=== PATIENT | female | born 1950 | race Caucasian/White ===

== ENCOUNTER 2017-11-11 09:11 | Emergency (ER) | payer MEDICARE ==
[~2017-11-11] VITALS: Ht 170.2 cm; Wt 63.5 kg
[~2017-11-11 09:11] MED LIST: ALBU90OI61 INH; ALPR.25 PO; ALPR.5 PO; ASPI81CH PO; BUSP5 PO; CALCAVITD PO; FISH1000 PO; FLUT110OIA INH; HYDR1TAB94 PO; MONT10T PO; RANI150; RANI150 PO; SERT100; SERT100 PO
[2018-07-12] MEDS ORDERED: IBUP800 PO (16:08)
== END 2017-11-11 11:08 | disposition home or self-care (01) ==
LOC: ER 09:11
DX: S63.501A Unspecified sprain of right wrist, initial encounter (principal); J44.9 Chronic obstructive pulmonary disease, unspecified; F17.200 Nicotine dependence, unspecified, uncomplicated; Z79.899 Other long term (current) drug therapy; Z79.82 Long term (current) use of aspirin; Z59.0 Homelessness; W01.0XXA Fall on same level from slipping, tripping and stumbling without subsequent striking against object, initial encounter
CPT/HCPCS: 29125; 73110; 73130; 96372; 99283; J1885; L3917

== ENCOUNTER → 2019-06-01 | Outpatient (CLI) | payer MEDICARE ==
[~2019-06-01] MED LIST changes: +IBUP800 PO
== END | disposition home or self-care (01) ==
LOC: PLD 10:39 → LAB SHORT 10:39
DX: L98.9 Disorder of the skin and subcutaneous tissue, unspecified (principal)
CPT/HCPCS: 88305; 88313

== ENCOUNTER 2020-08-11 11:34 | Emergency (ER) | payer MEDICARE, OTHER ==
[~2020-08-11] VITALS: Ht 170.2 cm; Wt 61.2 kg
[2020-08-11] MEDS ORDERED: BENEFIBER236 G1 (12:04)
[2020-08-11] MEDS ORDERED: Lutein6 MG PO (12:04)
== END 2020-08-11 12:51 | disposition home or self-care (01) ==
LOC: ER 11:34
DX: K40.90 Unilateral inguinal hernia, without obstruction or gangrene, not specified as recurrent (principal); F17.210 Nicotine dependence, cigarettes, uncomplicated; Z79.899 Other long term (current) drug therapy
CPT/HCPCS: 99283